=== PATIENT | female | born 1945 | race Caucasian/White ===

== ENCOUNTER 2016-11-26 05:06 | Observation (INO) | payer MEDICARE ==
[~2016-11-26] VITALS: Ht 167.6 cm; Wt 67.8 kg
[2016-11-26 05:32] LABS: BASO % 0.1 % (0.0-2.0); EOS # 0.3 (0.0-0.7); EOS % 4.8 % (0-4.0); GRAN # 3.3 (1.4-6.5); GRAN % 47.4 % (42.2-75.2); HEMATOCRIT 39.2 % (37.0-47.0); HEMOGLOBIN 13.3 g/dl (12.5-16.0); LYMPH # 2.2 (1.2-3.4); LYMPH % 32.1 % (20.0-51.0); MEAN CELL VOLUME 85 fl (80.0-100.0); MEAN CORPUSCULAR HEMOGLOBIN 29 pg (27.0-31.0); MEAN CORPUSCULAR HGB CONC 34 g/dl (33.0-37.0); MEAN PLATELET VOLUME 10.7 fl (7.4-10.4); MONO # 1.1 (0.1-0.6); MONO % 15.3 % (1.7-9.3); PLATELET COUNT 234 K/mm3 (130-400); RED BLOOD COUNT 4.63 M/mm3 (4.10-5.30); REDCELL DISTRIBUTION WIDTH-CV 13.1 % (11.5-14.5); WHITE BLOOD COUNT 6.9 K/mm3 (4.8-10.8)
[2016-11-26 05:47] LABS: ALANINE AMINOTRANSFERASE 21 U/L (9-52); ALBUMIN 4.4 gm/dL (3.5-5.0); ALKALINE PHOSPHATASE 90 U/L (50-136); ANION GAP 12 mmol/L (7-16); BILIRUBIN,TOTAL 0.5 mg/dL (0.0-1.0); BLOOD UREA NITROGEN 14 mg/dL (7-17); CALCIUM 9.3 mg/dL (8.4-10.2); CARBON DIOXIDE 24 mmol/L (22-30); CHLORIDE 103 mmol/L (98-107); CREATINE KINASE 138 U/L (30-135); CREATININE, serum 0.83 mg/dL (0.52-1.25); GLUCOSE 116 mg/dL (74-106); LIPASE 190 U/L (23-300); POTASSIUM 4.1 mmol/L (3.4-5.0); SODIUM 140 mmol/L (137-145)
[2016-11-26 05:58] LABS: B-TYPE NATRIURETIC PEPTIDE 34 pg/mL (0-125)
[2016-11-26 05:59] LABS: TROPONIN-I < 0.012 ng/mL (0.000-0.034)
[2016-11-26 08:39] VITALS: BP 102/58; PULSE 67; TEMP 97.9
[2016-11-26 08:41] VITALS: BP 102/58; PULSE 67; TEMP 97.8
[2016-11-26] MEDS ORDERED: ADVIL200 MG PO (08:48)
[2016-11-26] MEDS ORDERED: VITAMIN D32000 IU PO (08:50)
[2016-11-26] MEDS ORDERED: VITAMINC1000TA (08:51)
[2016-11-26] MEDS ORDERED: VITAMINC1000TA PO (08:51)
[2016-11-26] MEDS ORDERED: CALCIUM CARBON650 M2 PO (08:52)
[2016-11-26 11:16] VITALS: BP 98/42; PULSE 60; TEMP 97.8
[2016-11-26 15:06] VITALS: BP 102/62; PULSE 62; TEMP 98
[2016-11-26 19:14] LABS: CHOLESTEROL 197 mg/dL (120-200); HDL CHOLESTEROL 36 mg/dL; LDL CHOLESTEROL 147 mg/dL; MAGNESIUM 1.8 mg/dL (1.6-2.3); TRIGLYCERIDE 69 mg/dL
[2016-11-26 19:40] VITALS: BP 114/58; PULSE 72; TEMP 98
[2016-11-26 23:06] VITALS: BP 122/68; PULSE 66; TEMP 98.1
[2016-11-27] VITALS (9 sets, daily range): BP systolic 116–155; BP diastolic 63–78; PULSE 70–108; TEMP 97.4–98.6
== END 2016-11-27 16:51 | disposition home or self-care (01) ==
LOC: COL.ER 05:06 → MEDICAL 06:31
PROVIDERS: Emergency Medicine; Family Medicine
DX: R07.9 Chest pain, unspecified (principal); I35.1 Nonrheumatic aortic (valve) insufficiency; I25.10 Atherosclerotic heart disease of native coronary artery without angina pectoris; Z90.712 Acquired absence of cervix with remaining uterus; Z87.891 Personal history of nicotine dependence
CPT/HCPCS: A9502; G0378; J1650; J2270; J2785; J7030

== ENCOUNTER 2018-06-22 09:10 | Emergency (ER) | payer MEDICARE ==
[~2018-06-22] VITALS: Ht 167.6 cm; Wt 75.0 kg
[~2018-06-22 09:10] MED LIST: ADVIL200 MG PO; CALCIUM CARBON650 M2 PO; VITAMIN D32000 IU PO; VITAMINC1000TA; VITAMINC1000TA PO
[2018-06-22 09:17] VITALS: BP 127/75; PULSE 86; TEMP 98.4
[2018-06-22] MEDS ORDERED: NORCO 325 MG-51 TAB PO (10:59)
== END 2018-06-22 12:01 | disposition home or self-care (01) ==
LOC: COL.ER 09:10
DX: S52.502A Unspecified fracture of the lower end of left radius, initial encounter for closed fracture (principal); S52.615A Nondisplaced fracture of left ulna styloid process, initial encounter for closed fracture; S32.502A Unspecified fracture of left pubis, initial encounter for closed fracture; Z87.891 Personal history of nicotine dependence; W11.XXXA Fall on and from ladder, initial encounter; Y92.59 Other trade areas as the place of occurrence of the external cause
CPT/HCPCS: Q4050

== ENCOUNTER 2018-12-03 13:00 | Outpatient (RCR) | payer OTHER ==
[~2018-12-03 13:00] MED LIST changes: +NORCO 325 MG-51 TAB PO
== END 2018-12-08 ==
LOC: WSC
DX: S52.532D Colles' fracture of left radius, subsequent encounter for closed fracture with routine healing (principal); S32.592D Other specified fracture of left pubis, subsequent encounter for fracture with routine healing
CPT/HCPCS: G0283-GP

== ENCOUNTER 2018-12-09 08:00 | Outpatient (RCR) | payer OTHER | END 2019-03-09 | LOC: WSC | DX: S52.532D Colles' fracture of left radius, subsequent encounter for closed fracture with routine healing (principal); S32.592D Other specified fracture of left pubis, subsequent encounter for fracture with routine healing | CPT/HCPCS: G0283-GP ==

== ENCOUNTER 2020-10-08 07:59 | Emergency (ER) | payer MEDICARE ==
[~2020-10-08] VITALS: Ht 167.6 cm; Wt 75.0 kg
[2020-10-08 08:06] VITALS: TEMP 98.5
[2020-10-08 09:07] LABS: HEMOGLOBIN 12.4 g/dl (12.5-16.0); MEAN CELL VOLUME 87 fl (80.0-100.0); MEAN CORPUSCULAR HEMOGLOBIN 30 pg (27.0-31.0); MEAN CORPUSCULAR HGB CONC 34 g/dl (33.0-37.0); MEAN PLATELET VOLUME 10.8 fl (7.4-10.4); PLATELET COUNT 236 K/mm3 (130-400); REDCELL DISTRIBUTION WIDTH-CV 13.4 % (11.5-14.5)
[2020-10-08 09:09] LABS: HEMATOCRIT 36.7 % (37.0-47.0)
[2020-10-08 09:44] LABS: BAND 2 % (0-10); EOSINOPHIL 2 % (0-4); LYMPHOCYTE 17 % (20.0-51.0); METAMYELOCYTE 2 % (0-0); NEUTROPHILS 67 % (42.0-75.2)
[2020-10-08 09:46] LABS: PLATELET ESTIMATE NORMAL (NORMAL)
[2020-10-08 09:47] LABS: ERYTHROCYTE SEDIMENTATION RATE 13 mm/hr (0-30)
[2020-10-08] MEDS ORDERED: ULTRAM 50MG TAB50 MG PO (10:36)
[2020-10-08 10:54] VITALS: BP 121/64; PULSE 77
[2020-10-10 08:47] LABS: PATHOLOGY DIFF REVIEW OK
== END 2020-10-08 10:51 | disposition home or self-care (01) ==
LOC: COL.ER 07:59
PROVIDERS: Emergency Medicine
DX: M50.10 Cervical disc disorder with radiculopathy, unspecified cervical region (principal); M62.838 Other muscle spasm; M43.6 Torticollis

== ENCOUNTER 2020-10-10 21:57 | Emergency (ER) | payer MEDICARE ==
[~2020-10-10] VITALS: Ht 162.6 cm; Wt 77.3 kg
[~2020-10-10 21:57] MED LIST changes: +ULTRAM 50MG TAB50 MG PO
[2020-10-10 22:00] VITALS: TEMP 97.2
[2020-10-10 22:54] LABS: HEMATOCRIT 37.3 % (37.0-47.0); HEMOGLOBIN 12.2 g/dl (12.5-16.0); MEAN CELL VOLUME 88 fl (80.0-100.0); MEAN CORPUSCULAR HEMOGLOBIN 29 pg (27.0-31.0); MEAN CORPUSCULAR HGB CONC 33 g/dl (33.0-37.0); PLATELET COUNT 240 K/mm3 (130-400); RED BLOOD COUNT 4.22 M/mm3 (4.10-5.30); REDCELL DISTRIBUTION WIDTH-CV 13.6 % (11.5-14.5)
[2020-10-10 23:01] LABS: ALANINE AMINOTRANSFERASE 71 U/L (4-34); ALBUMIN 4.4 gm/dL (3.5-5.0); ALKALINE PHOSPHATASE 130 U/L (50-136); ANION GAP 8 mmol/L (7-16); AST,SGOT 60 U/L (15-37); BILIRUBIN,TOTAL 0.7 mg/dL (0.0-1.0); BLOOD UREA NITROGEN 7 mg/dL (7-17); CALCIUM 9.2 mg/dL (8.4-10.2); CARBON DIOXIDE 29 mmol/L (22-30); CHLORIDE 102 mmol/L (98-107); CREATININE, serum 0.74 (0.52-1.25); GLUCOSE 117 mg/dL (74-106); LIPASE 40 U/L (23-300); POTASSIUM 3.7 mmol/L (3.4-5.0); SODIUM 138 mmol/L (137-145); TOTAL PROTEIN 8.3 gm/dL (6.4-8.2)
[2020-10-10 23:14] LABS: TROPONIN-I < 0.012 ng/mL (0.000-0.035)
[2020-10-10 23:15] LABS: INR 1.2 (0.8-3.0); PROTHROMBIN TIME 13.7 SECONDS (9.7-12.8)
[2020-10-10 23:27] LABS: BAND 2 % (0-10); LYMPHOCYTE 10 % (20.0-51.0); NEUTROPHILS 77 % (42.0-75.2); PLATELET ESTIMATE NORMAL (NORMAL)
[2020-10-11] MEDS ORDERED: PREDNISONE20 MG PO (00:14)
[2020-10-11] MEDS ORDERED: FLEXERIL 1010 MG/TAB PO (00:14)
[2020-10-11 00:39] VITALS: BP 111/93; PULSE 82
== END 2020-10-11 00:39 | disposition home or self-care (01) ==
LOC: COL.ER 21:57
PROVIDERS: Emergency Medicine
DX: M54.10 Radiculopathy, site unspecified (principal); M25.512 Pain in left shoulder; Z79.891 Long term (current) use of opiate analgesic
CPT/HCPCS: J1885; J2060; J7030; J7512

== ENCOUNTER 2021-02-20 09:47 | Inpatient (IN) | payer MEDICARE ==
[~2021-02-20] VITALS: Ht 167.6 cm; Wt 75.0 kg
[~2021-02-20 09:47] MED LIST changes: +FLEXERIL 1010 MG/TAB PO; +PREDNISONE20 MG PO
[2021-02-20 11:09] LABS: HEMOGLOBIN 12.2 g/dl (12.5-16.0); MEAN CELL VOLUME 88 fl (80.0-100.0); MEAN CORPUSCULAR HEMOGLOBIN 29 pg (27.0-31.0); MEAN CORPUSCULAR HGB CONC 33 g/dl (33.0-37.0); MEAN PLATELET VOLUME 12.4 fl (7.4-10.4); PLATELET COUNT 86 K/mm3 (130-400); RED BLOOD COUNT 4.17 M/mm3 (4.10-5.30); REDCELL DISTRIBUTION WIDTH-CV 14.2 % (11.5-14.5)
[2021-02-20 11:19] LABS: HEMATOCRIT 36.6 % (37.0-47.0)
[2021-02-20 11:33] LABS: ARTERIAL BLD GAS O2 SATURATION 88.3 % (92-100); ARTERIAL BLD GAS TCO2 CT 21.8; ARTERIAL BLOOD GAS BASE EXCESS -2.1 (-2-2); ARTERIAL BLOOD GAS HCO3 20.8 meq/L (22-26); ARTERIAL BLOOD GAS PCO2 30.4 mmHg (35-45); ARTERIAL BLOOD GAS PO2 51.8 mmHg (80-100); ARTERIAL BLOOD GAS pH 7.45 (7.35-7.45)
[2021-02-20 11:38] LABS: ALANINE AMINOTRANSFERASE 26 U/L (4-34); ALBUMIN 4.4 gm/dL (3.5-5.0); ALKALINE PHOSPHATASE 107 U/L (50-136); ANION GAP 10 mmol/L (7-16); AST,SGOT 50 U/L (15-37); BILIRUBIN,TOTAL 0.7 mg/dL (0.0-1.0); BLOOD UREA NITROGEN 9 mg/dL (7-17); CALCIUM 8.2 mg/dL (8.4-10.2); CARBON DIOXIDE 25 mmol/L (22-30); CHLORIDE 102 mmol/L (98-107); CREATININE, serum 0.87 (0.52-1.25); GLUCOSE 107 mg/dL (74-106); POTASSIUM 3.9 mmol/L (3.4-5.0); SODIUM 138 mmol/L (137-145)
[2021-02-20 11:49] LABS: TROPONIN-I < 0.012 ng/mL (0.000-0.035)
[2021-02-20 12:12] LABS: BAND 21 % (0-10); EOSINOPHIL 1 % (0-4); LYMPHOCYTE 17 % (20.0-51.0); MYELOCYTE 2 % (0-0); NEUTROPHILS 38 % (42.0-75.2); NUCLEATED RED BLOOD CELL 1 (0-6)
[2021-02-20 12:13] LABS: PLATELET ESTIMATE DECREASED (NORMAL)
[2021-02-20 16:08] VITALS: BP 131/96; PULSE 74; TEMP 99.6
--- NOTE | 2021-02-20 16:33 | NUR ---
Pt. admitted to room 304. Pt. ambulatory and alert. Pt. on 1L O2 NC. Vitals WNL. Dr. Esqueda in to see pt., this RN oriented pt. to her room and use of call light. Pt. verbalized understanding and demonstrated use of call light. Pt. reports she takes no other medications other than her eye drops. Call light and belongings in reach.
[2021-02-20] MEDS ORDERED: XALATAN EYE DROPS OD (16:57)
[2021-02-20] MEDS ORDERED: ASPIRIN 81M81 MG/TA2 PO (17:18)
[2021-02-20 21:07] VITALS: BP 104/53; PULSE 52; TEMP 98.5
--- NOTE | 2021-02-20 22:12 | NUR ---
PT FOUND IN ROOM WITHOUT OXYGEN ON, SPO2 ASSESSED, 89-90% ON 4L O2. OXYGEN TITRATED TO 6L, SPO2 92%.
--- NOTE | 2021-02-20 22:38 | NUR ---
PT ALERT AND ORIENTED. CRACKLES AUSCULTATED IN LEFT LOWER LOBE, RIGHT LOBES CLEAR. PT ABLE TO AMBULATE INDEPENDENTLY IN ROOM. PT COMPLAINED OF LOWER BACK PAIN, RELEIVED BY EXTRA PILLOW GIVEN. PT NOTED TO HAVE IRREGULAR HEART RATE DURING VITAL SIGN COLLECTION, ON TELEMETRY PT HEART RATE REGULAR, NORMAL SINUS. WILL CONTINUE TO MONITOR. PT CAP REFILL <3S, PULSES 2+ IN ALL EXTREMITIES. PT CALL LIGHT WITHIN REACH, NO FURTHER NEEDS AT THIS TIME.
[2021-02-20 23:32] VITALS: BP 99/64; PULSE 68; TEMP 98.5
[2021-02-20 23:37] VITALS: BP 106/56
--- NOTE | 2021-02-21 02:58 | NUR ---
THIS RN WENT TO EXCHANGE NORMAL SALINE BAGS, FOUND OCCLUSION. PT STILL HAS APPROXIMATELY 500ML LEFT IN BAG. IV RESTARTED, IV PUMP ALARM VOLUME TURNED UP TO BE HEARD FROM OUTSIDE OF ROOM.
[2021-02-21 03:22] VITALS: BP 100/55; PULSE 65; TEMP 97.8
--- NOTE | 2021-02-21 06:29 | NUR ---
PT CONTINUING ON PLAN OF CARE. PT REPORTED PAIN IN KNEE AND REQUESTED PRN PAIN MEDICATIONS. PT BLOOD PRESSURES SLIGHTLY DECREASED AND HEART RATE VARIABLE ON DYNAMAP WHEN ASSESSING VITALS. ON TELEMETRY, PT MAINTAINED NORMAL SINUS RHYTHM. BISI STEVE NOTIFIED OF FLUCTUATING VALUES. EKG ORDERED TO ASSESS RHYTHM. PT DENIED CHEST PAIN, SOA THIS SHIFT. PT INDEPENDENT IN ROOM. PT FREE FROM INJURY THIS SHIFT.
[2021-02-21 07:07] LABS: HEMOGLOBIN 10.8 g/dl (12.5-16.0); MEAN CELL VOLUME 88 fl (80.0-100.0); MEAN CORPUSCULAR HEMOGLOBIN 29 pg (27.0-31.0); MEAN CORPUSCULAR HGB CONC 33 g/dl (33.0-37.0); MEAN PLATELET VOLUME 12.6 fl (7.4-10.4); PLATELET COUNT 100 K/mm3 (130-400); REDCELL DISTRIBUTION WIDTH-CV 14.2 % (11.5-14.5)
[2021-02-21 07:14] LABS: HEMATOCRIT 32.5 % (37.0-47.0)
[2021-02-21 07:21] LABS: CALCIUM 7.4 mg/dL (8.4-10.2); CREATININE, serum 0.78 (0.52-1.25); POTASSIUM 3.9 mmol/L (3.4-5.0)
--- NOTE | 2021-02-21 08:00 | NUR ---
Pt awake upon entry, in bed. No C/O pain at this time. Audible wheezing noted. Shift assessment complete, left Pt in bed, call light in reach.
[2021-02-21 08:15] VITALS: BP 118/58; PULSE 57; TEMP 97.9
[2021-02-21 08:51] LABS: BAND 32 % (0-10); LYMPHOCYTE 15 % (20.0-51.0); METAMYELOCYTE 2 % (0-0); NEUTROPHILS 33 % (42.0-75.2)
[2021-02-21 08:52] LABS: PLATELET ESTIMATE DECREASED (NORMAL)
--- NOTE | 2021-02-21 11:25 | NUR ---
Due to Covid pos. status psych social worker contacted the patient via room phone to discuss discharge plan. Patient states that she lives at home with her daughter Katja ([phone]) in [place]. Patient reports to being fully independent with activities of daily living and does not utilize any medical equipment. PCP is Fozia Villela and uses [facility] for perscriptions. Reports no difficulty being able to afford medications. Patient verbalizes that her daughter Katja is her DPOA-HC, but does not have it in writing. [facility] worker offered to arrange setting this up and will collaborate with the nursing staff to complete. Post dc, patient is planning on returning home. *Discharge plan: Home*
[2021-02-21 12:00] VITALS: BP 115/62; PULSE 60; TEMP 98
[2021-02-21 16:34] VITALS: BP 109/60; PULSE 57; TEMP 97.9
[2021-02-21 20:10] VITALS: BP 120/62; PULSE 53; TEMP 97.9
--- NOTE | 2021-02-21 21:30 | NUR ---
PT SITTING UP IN BED. EVENING MEDICATIONS GIVEN. PT LUNGS AUSCULATED WITH COARSE CRACKLES. REPORTS SOB UPON ACTIVITY. NS RUNNING AT 75ML/HR. OXYGEN VIA NC AT 6L. DENIES ANY NEEDS. WILL CONTINUE TO MONITOR.
[2021-02-22 00:24] VITALS: BP 123/64; PULSE 53; TEMP 97.6
[2021-02-22 03:38] VITALS: BP 124/74; PULSE 56; TEMP 96.8
--- NOTE | 2021-02-22 06:12 | NUR ---
PT HAD A RESTFUL NIGHT. MORNING MEDICATION GIVEN. DENIES ANY NEEDS.
[2021-02-22 07:46] LABS: HEMOGLOBIN 11.5 g/dl (12.5-16.0); MEAN CELL VOLUME 88 fl (80.0-100.0); MEAN CORPUSCULAR HEMOGLOBIN 29 pg (27.0-31.0); MEAN CORPUSCULAR HGB CONC 33 g/dl (33.0-37.0); MEAN PLATELET VOLUME 12.2 fl (7.4-10.4); PLATELET COUNT 147 K/mm3 (130-400); RED BLOOD COUNT 3.92 M/mm3 (4.10-5.30); REDCELL DISTRIBUTION WIDTH-CV 14.3 % (11.5-14.5)
[2021-02-22 07:54] LABS: HEMATOCRIT 34.5 % (37.0-47.0)
[2021-02-22 08:10] LABS: CALCIUM 8.2 mg/dL (8.4-10.2); CREATININE, serum 0.75 (0.52-1.25)
[2021-02-22 08:19] VITALS: BP 117/66; PULSE 59; TEMP 98.2
[2021-02-22 09:02] LABS: BAND 20 % (0-10); LYMPHOCYTE 11 % (20.0-51.0); NEUTROPHILS 47 % (42.0-75.2)
[2021-02-22 09:03] LABS: PLATELET ESTIMATE NORMAL (NORMAL); POIKILOCYTOSIS 1+; TARGET CELLS 1+
[2021-02-22 11:35] VITALS: BP 116/60; PULSE 64; TEMP 99.3
[2021-02-22 17:06] VITALS: BP 123/63; PULSE 57; TEMP 98.1
--- NOTE | 2021-02-22 18:52 | NUR ---
PT HAD UNEVENTFUL DAY. CONTINUED THE COVID COCKTAIL. O2 REQUIREMENTS DID INCREASE TO 8L NC. NO OTHER CONCERNS AT THIS TIME. REPORT GIVEN TO SWATHI REEVES.
--- NOTE | 2021-02-22 19:00 | NUR ---
Pt had uneventful day. Oxygen requirement is still an ongoing need. Pt is currently at 8L nc. Pt denies any pain, but does complain of being diaphoretic at times. Overall, no concerns. Report given to SWATHI Ramsey.
[2021-02-22 19:56] VITALS: BP 144/55; PULSE 60; TEMP 98.4
--- NOTE | 2021-02-22 20:02 | NUR ---
PT DROPPED DOXYCYCLINE PILL IN BED AND WE WERE UNABLE TO FIND IT. ANOTHER WAS PULLED FROM [employer] AND GIVEN. PT ALSO REQUESTING SOME TUMS FOR A FEELING OF INDIGESTION. LUNGS AUSCULTATED WITH COARSE CRACKLES. OXYGEN AT 6L NC. PT REPORTS BEING WEAK AND SHAKY THROUGHOUT THE DAY. WILL CONTINUE TO MONITOR.
[2021-02-23] VITALS (7 sets, daily range): BP systolic 99–133; BP diastolic 65–80; PULSE 51–60; TEMP 97.5–98.7
[2021-02-23 06:45] LABS: HEMOGLOBIN 12.3 g/dl (12.5-16.0); MEAN CELL VOLUME 88 fl (80.0-100.0); MEAN CORPUSCULAR HEMOGLOBIN 29 pg (27.0-31.0); MEAN CORPUSCULAR HGB CONC 33 g/dl (33.0-37.0); MEAN PLATELET VOLUME 11.4 fl (7.4-10.4); PLATELET COUNT 186 K/mm3 (130-400); RED BLOOD COUNT 4.22 M/mm3 (4.10-5.30); REDCELL DISTRIBUTION WIDTH-CV 14.1 % (11.5-14.5)
[2021-02-23 07:01] LABS: ALBUMIN 4.2 gm/dL (3.5-5.0); BILIRUBIN,TOTAL 0.6 mg/dL (0.0-1.0); C-REACTIVE PROTEIN 5.8 mg/dL (0.0-0.9); CALCIUM 8.6 mg/dL (8.4-10.2); CREATININE, serum 0.77 (0.52-1.25); TOTAL PROTEIN 7.7 gm/dL (6.4-8.2)
[2021-02-23 08:23] LABS: BAND 11 % (0-10); LYMPHOCYTE 16 % (20.0-51.0); METAMYELOCYTE 2 % (0-0); MYELOCYTE 1 % (0-0); NEUTROPHILS 58 % (42.0-75.2)
[2021-02-23 08:24] LABS: MICROCYTOSIS 1+; PLATELET ESTIMATE NORMAL (NORMAL)
--- NOTE | 2021-02-23 09:26 | NUR ---
RECEIVED REPORT FROM SWATHI REEVES. PT AWAKE/ALERT RESTING IN BED. DENIES PAIN. NO NEEDS AT THIS TIME. CALL PALACIOS IN REACH
--- NOTE | 2021-02-23 15:16 | NUR ---
[employer] collaborated with RN who advised patient has been independent in the room.
--- NOTE | 2021-02-23 18:25 | NUR ---
PT HAD UNEVENTFUL DAY. DENIES PAIN. NO NEEDS AT THIS TIME. CALL PALACIOS IN REACH
--- NOTE | 2021-02-23 21:32 | NUR ---
PT RESTING IN BED. EVENING MEDICATIONS GIVEN. COARSE CRACKLES BILATERAL LUNGS. DENIES ANY NEEDS. WILL CONTINUE TO MONITOR.
[2021-02-24 04:34] LABS: ARTERIAL BLD GAS O2 SATURATION 95.8 % (92-100); ARTERIAL BLD GAS TCO2 CT 26.6; ARTERIAL BLOOD GAS BASE EXCESS 1.3 (-2-2); ARTERIAL BLOOD GAS HCO3 25.5 meq/L (22-26); ARTERIAL BLOOD GAS PCO2 38.7 mmHg (35-45); ARTERIAL BLOOD GAS PO2 83.6 mmHg (80-100); ARTERIAL BLOOD GAS pH 7.44 (7.35-7.45)
[2021-02-24 05:24] VITALS: BP 127/65; PULSE 62; TEMP 97.5
--- NOTE | 2021-02-24 07:08 | NUR ---
RECEIVED REPORT FROM SWATHI REEVES. PT AWAKE/ALERT IN BED, SITTING UP. OXYGEN ON. PT DENIES PAIN; HAS NO NEEDS AT THIS TIME. CALL PALACIOS IN REACH
[2021-02-24 08:14] LABS: HEMATOCRIT 37.6 % (37.0-47.0); HEMOGLOBIN 12.7 g/dl (12.5-16.0); MEAN CELL VOLUME 86 fl (80.0-100.0); MEAN CORPUSCULAR HEMOGLOBIN 29 pg (27.0-31.0); MEAN CORPUSCULAR HGB CONC 34 g/dl (33.0-37.0); MEAN PLATELET VOLUME 11.4 fl (7.4-10.4); PLATELET COUNT 254 K/mm3 (130-400); RED BLOOD COUNT 4.39 M/mm3 (4.10-5.30)
[2021-02-24 08:36] LABS: ALBUMIN 3.7 gm/dL (3.4-4.8); BILIRUBIN,TOTAL 0.6 mg/dL (0.2-1.2); C-REACTIVE PROTEIN 4.3 mg/dL (0.00-0.50); CALCIUM 9.3 mg/dL (8.4-10.2); CREATININE, serum 0.97 mg/dL (0.57-1.11); POTASSIUM 4.1 mmol/L (3.5-4.5); TOTAL PROTEIN 7.7 gm/dL (6.2-8.1)
[2021-02-24 08:52] VITALS: BP 114/79; PULSE 51; TEMP 97.5
[2021-02-24 12:17] VITALS: BP 107/74; PULSE 55; TEMP 98.1
[2021-02-24 16:13] VITALS: BP 116/53; PULSE 54; TEMP 98.6
--- NOTE | 2021-02-24 18:19 | NUR ---
PT HAD UNEVENTFUL DAY. O2 WAS DECREASED FROM 5 TO 2L. PT DENIES PAIN. NO OTHER NEEDS AT THIS TIME. CALL PALACIOS IN REACH
[2021-02-24 21:23] VITALS: BP 121/61; PULSE 55; TEMP 97.8
--- NOTE | 2021-02-24 22:31 | NUR ---
PT ALERT AND ORIENTED. PT HAS IRREGULAR HEART RATE NOTED WHEN ASSESSING VITAL SIGNS. PT S1,S2 SOUNDS HEARD. PT LEFT LOWER LOBE COARSE CRACKLES AUSCULTATED. PT HAS ACTIVE BOWEL SOUNDS, ABLE TO AMBULATE TO BATHROOM INDEPENDENTLY IN ROOM. PT DENIES PAIN AT THIS TIME. PT HAD BOUT OF NAUSEA AT SHIFT CHANGE, MANAGED WITH PRN ZOFRAN PER ORDERS. PT CALL LIGHT WITHIN REACH.
[2021-02-24 23:26] VITALS: BP 134/66; PULSE 53; TEMP 98
[2021-02-25 03:20] VITALS: BP 130/68; PULSE 50; TEMP 97.7
--- NOTE | 2021-02-25 03:25 | NUR ---
PT COMPLAINS OF IRRITATION BEHIND LEFT EAR, SMALL RED ERICK NOTED FROM NASAL CANNULA. BLANCHABLE AT THIS TIME. FOAM TAPE PLACED AROUND CANNULA TUBING TO ALLEVIATE PRESSURE AT THIS TIME.
--- NOTE | 2021-02-25 03:27 | NUR ---
PT SPO2 SATURATION AT 88% FOR GREATER THAN 1 MINUTE. PT O2 TITRATED TO 3L PER HIGH FLOW CANNULA. PT AT 91-92% ON 3L.
--- NOTE | 2021-02-25 04:36 | NUR ---
PT CONTINUING ON PLAN OF CARE. PT O2 TITRATED TO 3L AT 0400 VITAL SIGN COLLECTION. PT ABLE TO AMBULATE INDEPENDENTLY IN ROOM. PT EXPRESSED INTERMITTENT KNEE PAIN, INQUIRED ABOUT SALVE OR RUB FOR KNEES. PT DENIED PAIN AT THE TIME OF 0400, BUT WILL PASS ON TO DAY SHIFT POTENTIAL PAIN RELIEF. PT FREE FROM INJURY.
--- NOTE | 2021-02-25 08:29 | NUR ---
Pt awake and alert upon entry, in bed. No C/O pain at thias time. Shift assessment complete, left Pt call light in reach, bed in lowest psoition.
[2021-02-25 09:10] VITALS: BP 114/61; PULSE 57; TEMP 98.1
[2021-02-25 11:45] VITALS: BP 120/59; PULSE 56; TEMP 98.1
[2021-02-25 17:44] VITALS: BP 121/62; PULSE 56; TEMP 97.7
--- NOTE | 2021-02-25 18:35 | NUR ---
Pt resting in the room, no complaints today. VS have remained stable.
[2021-02-25 20:26] VITALS: BP 107/57; PULSE 76; TEMP 98.6
--- NOTE | 2021-02-25 22:18 | NUR ---
PT ALERT AND ORIENTED IN ROOM. PT ABLE TO AMBULATE INDEPENDENTLY. PT LEFT LOWER LOBE SOUNDS COARSE CRACKLES. PT HEART RATE NOTED IRREGULAR, S1,S2 SOUNDS AUSCULTATED. PT STATES EXCITEMENT FOR POTENTIAL DISCHARGE TOMORROW. PT STATES PAIN IN COCCYX FROM SITTING, DENIES SKIN IRRITATION. PT STATES SHE IS ABLE TO REPOSITION SELF. PILLOW PROVIDED TO ALLEVIATE PRESSURE. PT CALL LIGHT WITHIN REACH.
--- NOTE | 2021-02-25 23:04 | NUR ---
PT CALLED OUT COMPLAINING OF NASAL DRYNESS. ZEE MARQUEZ NOTIFIED. RECEIVED ORDERS FOR NASAL SALINE PRN. ATTEMPT TO PROVIDE LUBRICATING JELLY TO PATIENT WELL.
[2021-02-25 23:17] VITALS: BP 120/67; PULSE 54; TEMP 97.7
--- NOTE | 2021-02-26 03:25 | NUR ---
PT CALLED OUT COMPLAINING OF BACK PAIN. WARM COMPRESS GIVEN TO ALLEVIATE PAIN.
--- NOTE | 2021-02-26 03:27 | NUR ---
ZEE MARQUEZ NOTIFIED OF PT BACK PAIN, REQUEST K-PAD ORDER. VERBAL ORDERS RECEIVED.
[2021-02-26 03:31] VITALS: BP 123/60; PULSE 79; TEMP 98
--- NOTE | 2021-02-26 03:50 | NUR ---
THIS RN NOTICED 6L RECORDED ON 0400 VITAL SIGNS. RECHECKED AT THIS TIME. CURRENTLY ON 3L VIA HF. SATURATION 92%
--- NOTE | 2021-02-26 04:45 | NUR ---
PT CONTINUING ON PLAN OF CARE. PT REMAINED ON 3L O2 OVERNIGHT. PT COMPLAINED OF BACK PAIN, KNEE PAIN INTERMITTENTLY. PT GIVEN WARM PACK AND K-PAD ORDERED TO HELP ALLEVIATE PAIN. PRN PAIN MEDICATION GIVEN PER ORDERS. PT ABLE TO AMBULATE INDEPENDENTLY IN ROOM. PT FREE FROM INJURY THIS SHIFT.
[2021-02-26 06:35] LABS: HEMATOCRIT 38.8 % (37.0-47.0); HEMOGLOBIN 13.1 g/dl (12.5-16.0); MEAN CELL VOLUME 87 fl (80.0-100.0); MEAN CORPUSCULAR HEMOGLOBIN 29 pg (27.0-31.0); MEAN CORPUSCULAR HGB CONC 34 g/dl (33.0-37.0); MEAN PLATELET VOLUME 11.2 fl (7.4-10.4); PLATELET COUNT 319 K/mm3 (130-400); RED BLOOD COUNT 4.46 M/mm3 (4.10-5.30); REDCELL DISTRIBUTION WIDTH-CV 13.7 % (11.5-14.5)
[2021-02-26 06:42] LABS: C-REACTIVE PROTEIN 2.1 mg/dL (0.00-0.50); CALCIUM 9.1 mg/dL (8.4-10.2); CREATININE, serum 0.89 mg/dL (0.57-1.11); POTASSIUM 4.1 mmol/L (3.5-4.5)
[2021-02-26 08:24] VITALS: BP 113/57; PULSE 63; TEMP 98.3
--- NOTE | 2021-02-26 08:29 | NUR ---
Pt awake upon entry, sitting up in bed. Has C/O back pian, hot pack provided for relief. Shift assessment complete, left Pt call light in reach, bed in lowest position.
--- NOTE | 2021-02-26 10:10 | NUR ---
Juliano spoke with the pt via phone at 8:45 am to make sure the pt had someone to help her with her oxygen when she is d/c. The pt informed Juliano that her daughter kristyn help her. Sw called [facility] for follow up made for Oxygen delivery to the pt. They delivered the oxygen to the pt at 9:45 am. No other needs at this time.
[2021-02-26] MEDS ORDERED: DECADRON6 MG PO (10:51)
[2021-02-26] MEDS ORDERED: PROAIR HFA0.09 MG/AC IH (10:51)
[2021-02-26] MEDS ORDERED: ROBITUSSIN DM 105 ML PO (10:52)
[2021-02-26 12:07] VITALS: BP 127/66; PULSE 62; TEMP 98.2
--- NOTE | 2021-02-26 15:30 | NUR ---
Pt discharge to home, discussed discharge packet with Pt, answered questions. Conducted Pt teaching on O2 concentrator. Pt escorted to entrance by PCT, Pt left with family via private transportation.
== END 2021-02-26 15:45 | disposition home or self-care (01) | DRG 177 ==
LOC: COL.ER 09:47 → MEDICAL 15:07
PROVIDERS: Internal Medicine; Nurse Practitioner Family; ADMIT Student in an Organized Health Care Education/Training Program
PROC: XW043E5 Introduction of Remdesivir Anti-infective into Central Vein, Percutaneous Approach, New Technology Group 5 (ICD-10-PCS; principal; 2021-02-20)
DX: U07.1 COVID-19 (principal); J12.82 Pneumonia due to coronavirus disease 2019; J96.01 Acute respiratory failure with hypoxia; G89.29 Other chronic pain; M54.9 Dorsalgia, unspecified; Z90.711 Acquired absence of uterus with remaining cervical stump
CPT/HCPCS: 99222-AI; 99231-AI; 99232-AI; 99239; J0696; J1100; J1650; J2405; J7030; J7050; J8540; Q0249; Q9967

== ENCOUNTER 2021-04-04 05:42 | Emergency (ER) | payer MEDICARE ==
[~2021-04-04] VITALS: Ht 167.6 cm; Wt 69.5 kg
[~2021-04-04 05:42] MED LIST changes: +ASPIRIN 81M81 MG/TA2 PO; +DECADRON6 MG PO; +PROAIR HFA0.09 MG/AC IH; +ROBITUSSIN DM 105 ML PO; +XALATAN EYE DROPS OD
[2021-04-04 05:51] VITALS: BP 106/60; TEMP 99.4
[2021-04-04 07:37] LABS: HEMOGLOBIN 11.9 g/dl (12.5-16.0); MEAN CELL VOLUME 90 fl (80.0-100.0); MEAN CORPUSCULAR HEMOGLOBIN 29 pg (27.0-31.0); MEAN CORPUSCULAR HGB CONC 33 g/dl (33.0-37.0); PLATELET COUNT 310 K/mm3 (130-400); RED BLOOD COUNT 4.06 M/mm3 (4.10-5.30); REDCELL DISTRIBUTION WIDTH-CV 14.1 % (11.5-14.5)
[2021-04-04 07:42] LABS: HEMATOCRIT 36.5 % (37.0-47.0)
[2021-04-04 07:48] LABS: ALBUMIN 3.6 gm/dL (3.4-4.8); CALCIUM 8.8 mg/dL (8.4-10.2); CREATININE, serum 0.78 mg/dL (0.57-1.11); POTASSIUM 3.7 mmol/L (3.5-4.5); TOTAL PROTEIN 6.7 gm/dL (6.2-8.1)
[2021-04-04 08:14] LABS: LYMPHOCYTE 14 % (20.0-51.0); NEUTROPHILS 76 % (42.0-75.2)
[2021-04-04 08:15] LABS: HYPOCHROMIA 1+; PLATELET ESTIMATE NORMAL (NORMAL)
[2021-04-04] MEDS ORDERED: DOXYCYCLINE 10100 MG PO (08:20)
[2021-04-04 08:30] VITALS: PULSE 95
== END 2021-04-04 08:30 | disposition home or self-care (01) ==
LOC: COL.ER 05:42
PROVIDERS: Student in an Organized Health Care Education/Training Program
DX: R05.9 Cough, unspecified (principal); Z86.16 Personal history of COVID-19

== ENCOUNTER 2021-07-06 17:44 | Emergency (ER) | payer MEDICARE ==
[~2021-07-06] VITALS: Ht 167.6 cm; Wt 71.8 kg
[~2021-07-06 17:44] MED LIST changes: +DOXYCYCLINE 10100 MG PO
[2021-07-06 18:14] VITALS: TEMP 98
[2021-07-06 19:12] VITALS: BP 122/81; PULSE 67
== END 2021-07-06 19:12 | disposition home or self-care (01) ==
LOC: COL.ER 17:44
DX: B34.9 Viral infection, unspecified (principal); Z20.822 Contact with and (suspected) exposure to COVID-19